=== PATIENT | female | born 1940 | race Native Hawaiian/Other Pacific Islander ===

== ENCOUNTER 2016-10-11 10:30 | Outpatient (CLI) | payer OTHER | END 2016-10-11 11:30 | disposition home or self-care (01) | LOC: RAD 10:30 | DX: N64.59 Other signs and symptoms in breast (principal) | CPT/HCPCS: G0204-TC ==

== ENCOUNTER 2017-05-30 10:32 | Outpatient (CLI) | payer OTHER | END 2017-05-30 11:35 | disposition home or self-care (01) | LOC: RESP 10:32 | DX: R06.02 Shortness of breath (principal) | CPT/HCPCS: 94664 ==

== ENCOUNTER 2018-04-04 13:59 | Outpatient (CLI) | payer OTHER | END 2018-04-04 23:26 | disposition home or self-care (01) | LOC: CT 13:59 | DX: J44.9 Chronic obstructive pulmonary disease, unspecified (principal); J18.8 Other pneumonia, unspecified organism ==

== ENCOUNTER 2018-11-28 11:20 | Outpatient (CLI) | payer OTHER ==
[2018-11-28 11:45] LABS: PLATELET COUNT 178 K/uL (152-353)
== END 2018-11-28 19:20 | disposition home or self-care (01) ==
LOC: LABW 11:20
PROVIDERS: Physician Assistant
DX: R94.39 Abnormal result of other cardiovascular function study (principal); Z79.899 Other long term (current) drug therapy
CPT/HCPCS: 36415; 80053; 80061; 82248; 85027

== ENCOUNTER 2019-01-28 10:45 | Outpatient (CLI) | payer OTHER | END 2019-01-28 19:17 | disposition home or self-care (01) | LOC: LABW 10:45 | DX: D89.89 Other specified disorders involving the immune mechanism, not elsewhere classified (principal); M06.4 Inflammatory polyarthropathy; R79.89 Other specified abnormal findings of blood chemistry; Z79.52 Long term (current) use of systemic steroids; Z79.899 Other long term (current) drug therapy | CPT/HCPCS: 36415; 82784; 85651; 86038; 86140 ==

== ENCOUNTER 2019-03-05 10:15 | Outpatient (CLI) | payer OTHER | END 2019-03-05 23:08 | disposition home or self-care (01) | LOC: RESP 10:15 | DX: J44.9 Chronic obstructive pulmonary disease, unspecified (principal); J98.4 Other disorders of lung ==

== ENCOUNTER 2019-09-22 10:35 | Emergency (ER) | payer OTHER ==
[~2019-09-22] VITALS: Ht 160 cm; Wt 35.4 kg
[2019-09-22 10:45] VITALS: BP 130/77; TEMP 98.2
== END 2019-09-22 12:36 | disposition home or self-care (01) ==
LOC: ED 10:35
PROC: 2W3CX1Z Immobilization of Right Lower Arm using Splint (ICD-10-PCS; principal; 2019-09-22)
DX: M11.241 Other chondrocalcinosis, right hand (principal); M06.841 Other specified rheumatoid arthritis, right hand
CPT/HCPCS: 84550; 96372; 99283; J2930

== ENCOUNTER 2021-04-12 10:47 | Outpatient (CLI) | payer OTHER | END 2021-04-12 21:22 | disposition home or self-care (01) | LOC: RESP 10:47 | PROVIDERS: ATTEND Internal Medicine | DX: R06.02 Shortness of breath (principal); R00.2 Palpitations; R42 Dizziness and giddiness; M62.81 Muscle weakness (generalized); R55 Syncope and collapse ==

== ENCOUNTER 2021-07-05 12:53 | Outpatient (CLI) | payer OTHER | END 2021-07-05 19:24 | disposition home or self-care (01) | LOC: MAMMO 12:53 | PROVIDERS: ATTEND Internal Medicine | DX: N64.59 Other signs and symptoms in breast (principal) ==

== ENCOUNTER 2021-10-25 10:01 | Outpatient (CLI) | payer OTHER | END 2021-10-25 19:05 | disposition home or self-care (01) | LOC: MAMMO 10:01 | PROVIDERS: ATTEND Specialist | DX: Z12.31 Encounter for screening mammogram for malignant neoplasm of breast (principal); N63.10 Unspecified lump in the right breast, unspecified quadrant ==

== ENCOUNTER 2022-01-09 11:08 | Outpatient (CLI) | payer OTHER | END 2022-01-09 18:53 | disposition home or self-care (01) | LOC: LABW 11:08 | PROVIDERS: ATTEND Nurse Practitioner Adult Health | DX: K52.9 Noninfective gastroenteritis and colitis, unspecified (principal) | CPT/HCPCS: 82656 ==

== ENCOUNTER 2022-03-29 11:21 | Outpatient (CLI) | payer OTHER | END 2022-03-29 18:57 | disposition home or self-care (01) | LOC: RESP 11:21 | PROVIDERS: ATTEND Plastic Surgery | DX: Z01.810 Encounter for preprocedural cardiovascular examination (principal) | CPT/HCPCS: 93005 ==

== ENCOUNTER 2022-06-14 11:48 | Outpatient (CLI) | payer OTHER ==
[2022-06-14 12:09] LABS: PLATELET COUNT 217 K/uL (152-353)
[2022-06-14 12:48] LABS: POTASSIUM 3.2 mmol/L (3.6-5.2)
== END 2022-06-14 21:19 | disposition home or self-care (01) ==
LOC: LABW 11:48
PROVIDERS: ATTEND Internal Medicine Nephrology
DX: N17.9 Acute kidney failure, unspecified (principal); Z79.899 Other long term (current) drug therapy
CPT/HCPCS: 36415; 80069; 81002; 82570; 84156; 85027; 86160; 86334; 87086; 87088

== ENCOUNTER 2022-09-12 11:07 | Outpatient (CLI) | payer OTHER ==
[2022-09-12 11:32] LABS: PLATELET COUNT 454 K/uL (152-353)
[2022-09-12 11:44] LABS: POTASSIUM 3.4 mmol/L (3.6-5.2)
== END 2022-09-12 19:17 | disposition home or self-care (01) ==
LOC: LABW 11:07
PROVIDERS: ATTEND Internal Medicine Nephrology
DX: N17.9 Acute kidney failure, unspecified (principal); R82.998 Other abnormal findings in urine
CPT/HCPCS: 36415; 80069; 81000; 82570; 84156; 85027; 87077; 87086; 87088; 87185; 87186

== ENCOUNTER 2022-12-19 11:53 | Outpatient (CLI) | payer OTHER ==
[2022-12-19 12:38] LABS: PLATELET COUNT 243 K/uL (152-353)
[2022-12-19 13:56] LABS: POTASSIUM 3.8 mmol/L (3.6-5.2)
== END 2022-12-19 18:59 | disposition home or self-care (01) ==
LOC: LABW 11:53
PROVIDERS: ATTEND Internal Medicine Nephrology
DX: N17.9 Acute kidney failure, unspecified (principal)
CPT/HCPCS: 36415; 80069; 81002; 82570; 84156; 85027

== ENCOUNTER 2023-03-12 14:14 | Outpatient (CLI) | payer OTHER ==
[2023-03-12 14:45] LABS: PLATELET COUNT 210 K/uL (152-353)
[2023-03-12 14:59] LABS: POTASSIUM 3.3 mmol/L (3.6-5.2)
== END 2023-03-12 19:13 | disposition home or self-care (01) ==
LOC: LABW 14:14
PROVIDERS: ATTEND Internal Medicine Nephrology
DX: N17.9 Acute kidney failure, unspecified (principal)
CPT/HCPCS: 36415; 80069; 81002; 82570; 84156; 85027

== ENCOUNTER 2023-04-06 12:27 | Outpatient (CLI) | payer OTHER | END 2023-04-06 19:16 | disposition home or self-care (01) | LOC: RAD 12:27 | PROVIDERS: ATTEND Internal Medicine | DX: Z13.820 Encounter for screening for osteoporosis (principal); N95.8 Other specified menopausal and perimenopausal disorders; M25.532 Pain in left wrist ==

== ENCOUNTER 2023-06-12 11:17 | Outpatient (CLI) | payer OTHER ==
[2023-06-12 14:37] LABS: POTASSIUM 3.3 mmol/L (3.6-5.2)
[2023-06-12 14:41] LABS: PLATELET COUNT 253 K/uL (152-353)
== END 2023-06-12 19:05 | disposition home or self-care (01) ==
LOC: LABW 11:17
PROVIDERS: ATTEND Internal Medicine Nephrology
DX: N17.8 Other acute kidney failure (principal); D63.1 Anemia in chronic kidney disease; N18.9 Chronic kidney disease, unspecified
CPT/HCPCS: 36415; 80069; 82607; 82746; 83540; 83550; 84466; 85027